=== PATIENT | female | born 1945 | race Caucasian/White ===

== ENCOUNTER 2025-01-04 15:40 | Emergency (ER) | payer SELFPAY ==
[~2025-01-04] VITALS: Ht 162.6 cm; Wt 73.0 kg
[2025-01-04 16:08] VITALS: O2SAT 100
[2025-01-04] MEDS ORDERED: NAPR-679 MT (18:11)
[2025-01-04] MEDS ORDERED: TRAM50TA3 MT (18:11)
[2025-01-04 18:40] VITALS: BP 168/68; PULSE 55; RESP 18; TEMP 36.9; O2SAT 100
== END 2025-01-04 18:42 | disposition home or self-care (01) ==
LOC: ER 15:40
DX: S80.01XA Contusion of right knee, initial encounter (principal); M17.11 Unilateral primary osteoarthritis, right knee; I10 Essential (primary) hypertension; Z79.899 Other long term (current) drug therapy; Z79.1 Long term (current) use of non-steroidal anti-inflammatories (NSAID); X58.XXXA Exposure to other specified factors, initial encounter; Y93.01 Activity, walking, marching and hiking; Y92.89 Other specified places as the place of occurrence of the external cause; Y99.8 Other external cause status
CPT/HCPCS: 73560; 99283